=== PATIENT | female | born 2000 | race Hispanic/Latino ===

== ENCOUNTER 2023-03-04 08:49 | Emergency (ER) | payer MEDICAID ==
[~2023-03-04] VITALS: Ht 147.3 cm; Wt 49.0 kg
[2023-03-04 09:24] LABS: APPEARANCE,URINE CLEAR (CLEAR); BILIRUBIN,URINE NEGATIVE (NEGATIVE); COLOR,URINE LIGHT-YELLOW (YELLOW); GLUCOSE, URINE (UA) NEGATIVE (NEGATIVE); KETONES,URINE NEGATIVE (NEGATIVE); LEUKOCYTE ESTERASE ,URINE NEGATIVE Leu/uL (NEGATIVE); NITRATE,URINE NEGATIVE (NEGATIVE); OCCULT BLOOD,URINE NEGATIVE (NEGATIVE); PH,URINE 5.5 (5.0-8.0); PROTEIN,URINE NEGATIVE (NEGATIVE); UROBILINOGEN,URINE 0.2 mg/dL (0.2-1.0)
[2023-03-04 09:25] LABS: HCG,QUALITATIVE URINE NEGATIVE (NEGATIVE)
[2023-03-04 09:35] LABS: BASOPHILS % (AUTO) 0.6 % (0.0-5.0); HEMATOCRIT 43.5 % (36-48); MEAN CORPUSCULAR HEMOGLOBIN 29.2 pg (27.0-33.0); MEAN CORPUSCULAR HGB CONC 33.8 g/dL (32.0-36.0); MEAN CORPUSCULAR VOLUME 86.5 fL (80-100); MONOCYTES % (AUTO) 7.8 % (3.0-13.0); NEUTROPHILS % (AUTO) 71.4 % (40.0-77.0); PLATELET COUNT (AUTO) 309 K/uL (130-400); RED BLOOD CELL COUNT(AUTO) 5.03 MIL/uL (4.00-5.50); RED CELL DISTRIBUTION WIDTH 11.9 % (11.0-15.5); WHITE BLOOD COUNT (AUTO) 8.1 K/uL (4.8-10.8)
[2023-03-04 09:53] LABS: ALBUMIN 3.8 g/dL (3.5-5.0); CREATININE 0.9 mg/dL (0.5-1.5); MAGNESIUM 1.7 mg/dL (1.80-2.40); POTASSIUM 3.1 mmol/L (3.5-5.1); TOTAL PROTEIN, SERUM 7.7 g/dL (6.0-8.3)
[2023-03-04] MEDS ORDERED: POTASSIUM CHLORIDE 10MEQ SR TAB PO SCH (11:00)
[2023-03-04] MEDS ORDERED: NAPR500T6 PO (11:10)
[2023-03-04 11:21] VITALS: BP 128/86
[2023-03-04] MEDS ORDERED: ACETAMINOPHEN 325 MG TAB ONE (11:27)
[2023-03-04] MEDS ORDERED: ACETAMINOPHEN 325 MG TAB PO ONE (11:30)
== END 2023-03-04 11:38 | disposition home or self-care (01) ==
LOC: EDH 08:49
DX: R07.89 Other chest pain (principal); E87.6 Hypokalemia
CPT/HCPCS: 36415; 71045; 80053; 81003; 81025; 83735; 84484; 85025; 85378; 93005

== ENCOUNTER 2025-07-11 10:22 | Emergency (ER) | payer BC, MEDICAID ==
[~2025-07-11] VITALS: Ht 147.3 cm; Wt 54.0 kg
[~2025-07-11 10:22] MED LIST: NAPR-1506 PO
--- NOTE | 2025-07-11 10:29 | ERN ---
ED Note History of Present Illness Stated Complaint: MIGRAINE HEADACHE Chief Complaint: Headache Time Seen by MD: 10:26 Dictation: PATIENT IS A 24-YEAR-OLD FEMALE COMING IN TODAY WITH COMPLAINTS OF AN OCCIPITAL HEADACHE THROBBING THAT SHE HAS HAD FOR SIX DAYS. NO FEVER NO CHILLS. SHE HAS HAD NAUSEA WITHOUT VOMITING. SHE STATES SHE HAS ALREADY BEEN TO HER PRIMARY CARE DOCTOR WHO DID LABS AND TOLD HER HER CHOLESTEROL WAS ELEVATED GAVE HER PREDNISONE FLEXERIL AND NAPROXEN WITHOUT RELIEF. SHE IS NOTED TO BE TACHYCARDIC IN TRIAGE AFEBRILE ALSO BLOOD PRESSURE 182/112. Allergies: Coded Allergies: No Known Allergies (Unverified Allergy, Unknown, 03/04/23) Home Meds Active Scripts Butalb/Acetaminophen/Caffeine (Fioricet) 50 Mg-325 Mg-40 Mg Tab, 2 TAB PO Q4PRN for HEADACHE, #20 TAB 0 Refills TWO TABLETS BY MOUTH EVERY 4 HOURS NEEDED FOR HEADACHE, MAXIMUM SIX TABLETS IN 24 HOURS Prov:YOSELYN SALAZAR NP 07/11/25 Naproxen (Naproxen) 500 Mg Tablet.dr 500 MG PO BID for 7 Days, #14 TAB Prov:ANGEL HAMILTNO MD 03/04/23 Past Medical History Past Medical History: No Pertinent History Surgical History: None Social History: Negative RN Note Reviewed/Agreed w/PFSH: Yes Review of System Dictation CONSTITUTIONAL: NEGATIVE EXCEPT FOR HPI HEAD/FACE: NEGATIVE EXCEPT FOR HPI EENT: NEGATIVE EXCEPT FOR HPI RESPIRATORY: NEGATIVE EXCEPT FOR HPI GASTROINTESTINAL/ABDOMINAL: NEGATIVE EXCEPT FOR HPI GENITOURINARY: NEGATIVE EXCEPT FOR HPI MUSCULOSKELETAL: NEGATIVE EXCEPT FOR HPI INTEGUMENTARY: NEGATIVE EXCEPT FOR HPI NEUROLOGICAL/PSYCH: NEGATIVE EXCEPT FOR HPI OCCIPITAL HEADACHE HEMATOLOGIC/LYMPHATIC: NEGATIVE EXCEPT FOR HPI ALL SYSTEMS NEGATIVE, EXCEPT NOTED ABOVE. 13 POINT REVIEW OF SYSTEMS ASSESSED AND ALL NEGATIVE EXCEPT FOR ABOVE. Initial Vital Sign VS Vital Signs Date Time Temp Pulse Resp B/P (MAP) Pulse Ox O2 Delivery O2 Flow Rate FiO2 07/11/25 10:25 98.4 124 18 182/110 98 Room Air 07/11/25 13:16 0 21 Physical Exam Dictation VITAL SIGNS REVIEWED GENERAL APPEARANCE: ALERT, ORIENTED X 3, MODERATE ACUTE DISTRESS, WELL DEVELOPED, NOURISHED. HEAD AND FACE: NON-TRAUMATIC. EYES: PERRL, PINK CONJUNCTIVAS, EYELID NO TRAUMA, ANTERIOR CHAMBER WITH ARCUS SENILIS. EARS: PINNAS INTACT AND NO SIGNS OF TRAUMA OR ERYTHEMA EAR CANALS CLEAR AND NO DISCHARGE TM NO ERYTHEMA NOSE: NO DISCHARGE, NO BLEEDING. OROPHARYNX: MOUTH NORMAL, TONGUE PINK, PHARYNX CLEAR,NO ERYTHEMA, TONSILS NO EXUDATES, NO ABSCESSES NOTED, MUCOUS MEMBRANE MOIST NECK: SUPPLE, NON-TENDER, NO THYROMEGALY, NO MASSES, NO JVD, NO BRUITS BREAST:DEFERRED CHEST:NO TENDERNESS, NO CREPITUS, NO PARADOXICAL MOVEMENT, NO RETRACTIONS LUNGS:CLEAR, WELL-VENTILATED, SYMMETRIC, NO RALES, NO WHEEZING, NO RHONCHI, NO STRIDOR, GOOD BREATH SOUNDS BILATERALLY HEART: REGULAR RATE, REGULAR RHYTHM, NO MURMUR, NO GALLOPS VASCULAR: NO PERIPHERAL EDEMA, ABDOMEN: SOFT, POSITIVE BOWEL SOUNDS, NONDISTENDED, NO GUARDING, NONTENDER, NO REBOUND, NO MASSES NO HEPATOMEGALY, NO SPLENOMEGALY, NO MOLINA'S SIGN, NO HERNIAS. RECTAL: DEFERRED GENITAL: DEFERRED NEUROLOGICAL: NORMAL SPEECH, MOTOR FUNCTION INTACT, SENSORY FUNCTION INTACT NIH IS 0 MUSCULOSKELETAL: NECK NONTENDER, FULL RANGE OF MOTION, BACK NONTENDER, FULL RANGE OF MOTION, EXTREMITIES: NONTENDER, FULL RANGE OF MOTION SKIN: COLOR PINK, DRY, NO TURGOR, NO RASH, NO LACERATIONS, NO ABRASIONS, NO CONTUSIONS. LYMPHATIC: DEFERRED IVF Sepsis Management IVF calculated by IBW?: Yes Results (Laboratory/Radiology) Laboratory/Radiology Laboratory Tests Test 07/11/25 10:33 07/11/25 11:55 White Blood Count 10.7 K/uL (4.8-10.8) Red Blood Count 4.77 MIL/uL (4.00-5.50) Hemoglobin 14.1 g/dL (12.0-16.0) Hematocrit 41.9 % (36-48) Mean Corpuscular Volume 87.8 fL (79-99) Mean Corpuscular Hemoglobin 29.6 pg (27.0-33.0) Mean Corpuscular Hemoglobin Concent 33.7 g/dL (32.0-36.0) Red Cell Distribution Width 12.7 % (11.0-15.5) Platelet Count 354 K/uL (130-400) Mean Platelet Volume 8.9 fL (7.5-10.5) Immature Granulocyte % (Auto) 0.7 % (0-1) Neutrophils (%) (Auto) 63.2 % (40.0-77.0) Lymphocytes (%) (Auto) 26.5 % (21.0-51.0) Monocytes (%) (Auto) 8.0 % (3.0-13.0) Eosinophils (%) (Auto) 0.8 % (0.0-8.0) Basophils (%) (Auto) 0.8 % (0.0-5.0) Neutrophils # (Auto) 6.7 K/uL (1.8-7.7) Lymphocytes # (Auto) 2.8 K/uL (1.0-4.8) Monocytes # (Auto) 0.9 K/uL (0.1-1.0) Eosinophils # (Auto) 0.09 K/uL (0.00-0.70) Basophils # (Auto) 0.09 K/uL (0.00-0.20) Absolute Immature Granulocyte (auto 0.07 K/uL (0-1) Nucleated Red Blood Cells 0.0 % (0.0-0.19) Sodium Level 135 mmol/L (136-145) L Potassium Level 3.4 mmol/L (3.5-5.1) L Chloride Level 98 mmol/L (101-111) L Carbon Dioxide Level 28 mmol/L (21-32) Blood Urea Nitrogen 11 mg/dL (7-18) Creatinine 0.7 mg/dL (0.5-1.0) Glomerular Filtration Rate Calc 125 mL/min (>90) Random Glucose 96 mg/dL (70-105) Lactic Acid Level 2.3 mmol/L (0.8-2.5) Total Calcium 9.6 mg/dL (8.5-10.1) Troponin I High Sensitivity < 4 ng/L (4-50) L Serum Test, Qualitative NEGATIVE (NEGATIVE) Urine Color COLORLESS (YELLOW) Urine Appearance CLEAR (CLEAR) Urine pH 7.5 (5.0-8.0) Urine Specific [place] 1.012 (1.001-1.031) Urine Protein NEGATIVE mg/dL (NEGATIVE) Urine Glucose (UA) NEGATIVE mg/dL (NEGATIVE) Urine Ketones NEGATIVE mg/dL (NEGATIVE) Urine Occult Blood NEGATIVE (NEGATIVE) Urine Nitrate NEGATIVE (NEGATIVE) Urine Bilirubin NEGATIVE mg/dL (NEGATIVE) Urine Urobilinogen 0.2 mg/dL (0.2-1.0) Urine Leukocyte Esterase NEGATIVE Francine/uL SARS-CoV-2 Antigen (Rapid) PRESUMPTIVE NEGATIVE Labs Reviewed?: Yes EKG: (+) NSR EKG Comment: EKG NORMAL SINUS RHYTHM/HEART RATE 98/AXIS NORMAL/NO ECTOPY ED Course ED Course Orders Procedure Category Date Status Time Blood Cult NALLELY 07/11/25 In Process 10:26 Lactic Acid LAB 07/11/25 Complete 10:26 Covid19 (Sars Antigen LAB 07/11/25 Complete Rapid) 10:26 Cbc With Differential LAB 07/11/25 Complete 10:26 Troponin I High LAB 07/11/25 Complete Sensitivity 10:26 Urinalysis Profile LAB 07/11/25 Complete 10:26 12 Lead Ekg Tracing- EKG 07/11/25 Complete Technical 10:26 0.9%Nacl 1000ml (Ns PHA 07/11/25 Complete 1000ml) 10:30 Morphine 2mg Syg PHA 07/11/25 Complete (Morphine 2mg Syg) 10:30 Ondansetron 4mg Inj PHA 07/11/25 Complete (Zofran 4mg Inj) 10:30 Basic Metabolic Panel LAB 07/11/25 Complete 10:26 Testing, LAB 07/11/25 Complete Serum Hcg 10:26 Ct Head/Brain W/O CT 07/11/25 Resulted Contrast 10:26 Morphine 4mg Syg PHA 07/11/25 Complete (Morphine 4mg Syg) 12:30 Current Medications Medications (Trade) Dose Ordered Sig/Jyothi Route PRN Reason Start Time Stop Time Status Last Admin Dose Admin Morphine Sulfate (morPHINE 2MG SYG) 2 mg ONCE ONCE IVP 07/11/25 10:30 07/11/25 10:31 DC Morphine Sulfate (morPHINE 4MG SYG) 2 mg ONCE ONCE IV 07/11/25 12:30 07/11/25 12:31 DC 07/11/25 12:30 Ondansetron HCl (zoFRAN 4MG INJ) 4 mg ONCE ONCE IVP 07/11/25 10:30 07/11/25 10:31 DC 07/11/25 12:09 Sodium Chloride 1,000 ml @ 0 mls/hr ONCE ONCE IV 07/11/25 10:30 07/11/25 10:31 DC 07/11/25 12:10 Vital Signs Date Time Temp Pulse Resp B/P (MAP) Pulse Ox O2 Delivery O2 Flow Rate FiO2 07/11/25 13:16 98.1 80 18 139/92 98 Room Air* 0 21 07/11/25 10:25 98.4 124 18 182/110 98 Room Air 1300/PATIENT STATES HER HEADACHE HAS RESOLVED SHE STILL HAS SOME MILD NECK PAIN. CURRENT BLOOD PRESSURE 142/86 AND PATIENT IS AWARE LUIS ANGEL SHE HAS BEEN NINE HYPERTENSION. WORKUP IS UNREMARKABLE CT NEGATIVE WE WILL TREAT PATIENT WITH FIORICET AND TOLD TO SEE HER DOCTOR FOR FOLLOW UP ON HER BLOOD PRESSURE AND TENSION HEADACHES SHE WILL ALSO BE REFERRED TO NEUROLOGY SHE REMAINS NEUROLOGICALLY INTACT NIH IS 0 HEART Score Response (Comments) Value History: Low suspicion (0) 0 EKG: Normal 0 Age: < 45yrs (0) 0 Risk Factors: No known risk factors (0) 0 Initial Troponin: Normal limit (0) 0 Total 0 Medical Decision Making MDM MDM: DIFFERENTIAL DIAGNOSIS: TENSION HEADACHE/MIGRAINE HEADACHE/STRESS/ELECTROLYTE IMBALANCE/DEHYDRATION/HYPERTENSION RATIONALE: TESTS CONSIDERED AND ORDERED SECONDARY TO SHARED DECISION MAKING INCLUDE: LABS/CT PREVIOUS OUTSIDE RECORDS REVIEWED: OLD ER VISITS. RISK OF COMPLICATION AND/OR MORBIDITY OR MORTALITY OF PATIENT MANAGEMENT: NONE MEDICATIONS-PER MEDICATION RECONCILIATION NEED FOR HOSPITALIZATION: PATIENT DOES NOT MEET CRITERIA FOR HOSPITALIZATION. N EGATIVE NEED FOR EMERGENCY MAJOR/MINOR SURGERY: NO THERE ARE NO SOCIAL CONCERNS WITH THIS PATIENT. PRESCRIPTION DRUG MANAGEMENT FIORICET PRESCRIPTIONS WILL INCLUDE SYMPTOMATIC CARE PATIENT'S PRIOR EXTERNAL MEDICAL RECORDS FROM OTHER ER VISITS WERE REVIEWED BY ME INDICATED. PRIOR TESTING AND RESULTS FROM PREVIOUS VISITS WERE REVIEWED. PRIOR TESTS WERE TAKEN INTO ACCOUNT WITH MEDICAL DECISION MAKING AND RESOURCE UTILIZATION, INDEPENDENT HISTORIAN/HISTORIANS WERE USED TO OBTAIN COMPLETE MEDICAL HISTORY. I INDEPENDENTLY INTERPRETED THE TEST THAT WERE PERFORMED, RESULTS WERE REVIEWED BY ME AND CONSIDERED FINDINGS ON RADIOLOGY IF ORDERED. MEDICAL MANAGEMENT AND EXAMINATION INTERPRETATION DISCUSSIONS WERE HAD BY ME WITH OTHER QUALIFIED HEALTHCARE PROFESSIONALS INDICATED FOR THE PATIENT'S CARE. DX & DISP Disposition: Discharge Departure Impression: Primary Impression: Tension headache Additional Impressions: Hypokalemia, Dehydration, Hypertension Condition: Stable Scripts Butalb/Acetaminophen/Caffeine (Fioricet) 50 Mg-325 Mg-40 Mg Tab 2 TAB PO Q4PRN for HEADACHE, #20 TAB 0 Refills TWO TABLETS BY MOUTH EVERY 4 HOURS NEEDED FOR HEADACHE, MAXIMUM SIX TABLETS IN 24 HOURS Prov: YOSELYN SALAZAR CHIEF SAFETY OFFICER 07/11/25 Additional Instructions: Follow-up with primary care provider in 1 to 2 days. Take medications as directed here in the emergency room. Okay to continue home medications unless otherwise discussed during your visit in the emergency room today. Return to your nearest emergency room if symptoms worsen or if there is no improvement. Call 911 if you need immediate assistance. Take Tylenol or Motrin [id number] as needed and if no contraindications are present. Increase oral hydration. A wound culture or urine culture was ordered here in the emergency room department please follow-up with primary care provider and advise them to get repeat ports from our facility. If you had any Larry wrap/splints that were applied here, please do not remove them until you see your primary care or specialty. Take Fioricet as directed for headache. See your primary care doctor for management of your blood pressure. Call neurologist for appointment in the next 2-3 days if headache returns. Referrals: SELF,REFERRAL (PCP) HETAL MATSON MD I have reviewed the case, and I agree with, Diagnosis and Plan YOSELYN SALAZAR NP Jul 11, 2025 10:29 SRI MARTIN DO Jul 11, 2025 13:37
[2025-07-11 11:08] LABS: CREATININE 0.7 mg/dL (0.5-1.0); GLOMERULAR FILTR. RATE CALC 125.0 mL/min (>90); GLUCOSE,RANDOM 96.0 mg/dL (70-105); SODIUM SERUM 135.0 mmol/L (136-145); UREA NITROGEN, BLOOD 11.0 mg/dL (7-18)
--- NOTE | 2025-07-11 11:11 | EKG ---
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
[2025-07-11 11:21] LABS: IMMATURE GRANULOCYTE ABSOLUTE 0.07 K/uL (0-1); NUCLEATED RED BLOOD CELLS 0.0 % (0.0-0.19); PLATELET COUNT (AUTO) 354 K/uL (130-400); RED BLOOD CELL COUNT(AUTO) 4.77 MIL/uL (4.00-5.50); RED CELL DISTRIBUTION WIDTH 12.7 % (11.0-15.5); WHITE BLOOD COUNT (AUTO) 10.7 K/uL (4.8-10.8)
[2025-07-11] MEDS: 0.9%NACL 1000ML 1,000 ML IV ONE (12:10)
[2025-07-11 12:29] LABS: APPEARANCE,URINE CLEAR (CLEAR); GLUCOSE, URINE (UA) NEGATIVE (NEGATIVE); LEUKOCYTE ESTERASE ,URINE NEGATIVE Leu/uL (NEGATIVE); NITRATE,URINE NEGATIVE (NEGATIVE); OCCULT BLOOD,URINE NEGATIVE (NEGATIVE)
[2025-07-11 12:32] LABS: ADD UA MICROSCOPIC NO
--- NOTE | 2025-07-11 12:50 | HMCIMG ---
EXAM: CT Head Without IV contrast. CLINICAL HISTORY: OCCIPITAL HEADACHE TACHYCARDIC SIX DAYS TECHNIQUE: Axial computed tomography images of the head/brain without intravenous contrast. COMPARISON: None provided. FINDINGS: BRAIN: No evidence of acute hemorrhage. No mass lesion. No CT evidence for acute territorial infarct. No midline shift or extra-axial collections. VENTRICLES: No hydrocephalus. ORBITS: The orbits are unremarkable. SINUSES AND MASTOIDS: The paranasal sinuses and mastoid air cells are clear. BONES: No fracture. SOFT TISSUES: Unremarkable. IMPRESSION: No acute intracranial abnormality. /[place]
[2025-07-11] MEDS ORDERED: FIORIT PO (13:04)
[2025-07-11 13:16] VITALS: BP 139/92; PULSE 80; RESP 18; TEMP 98.1; O2SAT 98
== END 2025-07-11 13:26 | disposition home or self-care (01) ==
LOC: EDH 10:22
DX: G44.209 Tension-type headache, unspecified, not intractable (principal); E87.6 Hypokalemia; E86.0 Dehydration; I10 Essential (primary) hypertension; Z20.822 Contact with and (suspected) exposure to COVID-19; Z79.899 Other long term (current) drug therapy
CPT/HCPCS: 99284; 96374; 70450; 96361; 96375; 87426; 84484; 80048; 84703; 85025; 87040 ×2; 83605; 81003; 36415; 93005; J7030; J2405; J2270